=== PATIENT | female | born 1990 | race Caucasian/White ===

== ENCOUNTER → 2017-03-29 10:25 | Emergency (ER) | payer MEDICAID, OTHER ==
[2017-03-29 12:01] VITALS: BP 125/64
--- NOTE | 2017-03-29 22:32 | ED ---
Nubia Davison Erika, scribed for Beto Blanchard MD on 03/29/17 at 1412 . HPI Chest Pain - HPI Summary HPI Summary: Patient is a 26-year-old female presenting to the ED with a CC of sharp right anterior chest pain for the past 2.5 days. Patient reports that pain is localized under the right breast at the ribs, and slightly radiates to the right lateral chest and the right side of the back. Pain is aggravated by breathing, movement, and palpation. Pain is somewhat improved by placing pressure on the chest. Pain was somewhat improved by ibuprofen, but was not improved by Tramadol or Tylenol. Tramadol was given by a doctor she saw on 03/27. Pt denies trauma, but states the day before pain started, she had a spasm in her back which she massaged. Pt denies SOB. Pt reports she is about 15 weeks , and has not seen an OB yet. - History of Current Complaint Chief Complaint: EDChestWallPain Time Seen by Provider: 03/29/17 13:57 Hx Obtained From: Patient Onset/Duration: Started Days Ago, Atraumatic, Still Present Timing: Constant Current Severity: Moderate Pain Intensity: 10 Pain Scale Used: 0-10 Numeric Chest Pain Location: Right Anterior Chest Pain Radiates: Yes Chest Pain Radiates To:: Back - slightly Character: Sharp/Stabbing Aggravating Factor(s): Movement, Deep Breaths, Other: - palpation Alleviating Factor(s): Other: - ibuprofen slighlty helps Associated Signs and Symptoms: Negative: Shortness of Breath - Additional Pertinent History Primary Care Physician: [id number] - Allergy/Home Medications Allergies/Adverse Reactions: Allergies Allergy/AdvReac Type Severity Reaction Status Date / Time Latex Allergy Anaphylatic Verified 03/29/17 10:28 Shock PMH/Surg Hx/FS Hx/Imm Hx Cardiovascular History: Denies: Hx Myocardial Infarction Psychiatric History: Reports: Hx Anxiety, Hx Depression Denies: Hx Eating Disorder, Hx of Violent Episodes Against Others Infectious Disease History: No Infectious Disease History: Denies: Traveled Outside the [place] in Last 30 Days - Family History Known Family History: Positive: Other - depression - Social History Lives: With Family Alcohol Use: None Hx Substance Use: Yes Substance Use Type: Reports: Marijuana Hx Tobacco Use: Yes Smoking Status (MU): Light Every Day Tobacco Smoker Review of Systems Positive: Chest Pain Negative: Shortness Of Breath All Other Systems Reviewed And Are Negative: Yes Physical Exam Triage Information Reviewed: Yes Vital Signs On Initial Exam: Initial Vitals Temp Pulse Resp BP Pulse Ox 99.1 F 93 20 134/61 100 03/29/17 10:29 03/29/17 10:29 03/29/17 10:29 03/29/17 10:29 03/29/17 10:29 Vital Signs Reviewed: Yes Appearance: Positive: Well-Appearing, No Pain Distress, Obese Skin: Positive: Warm, Skin Color Reflects Adequate Perfusion, Dry Head/Face: Positive: Normal Head/Face Inspection Eyes: Positive: Normal ENT: Positive: Normal ENT inspection Neck: Positive: Supple, Nontender Respiratory/Lung Sounds: Positive: Clear to Auscultation, Breath Sounds Present Cardiovascular: Positive: RRR Abdomen Description: Positive: Nontender, Soft, Other: - Nontender RUQ Bowel Sounds: Positive: Present Musculoskeletal: Positive: Other - Very tender at the right anterior lower sternal border. Point tenderness at the costal margin. Nontender back Neurological: Positive: Normal Psychiatric: Positive: Affect/Mood Appropriate - Burns Coma Scale Coma Scale Total: 15 Diagnostics - Vital Signs Vital Signs Temp Pulse Resp BP Pulse Ox 03/29/17 12:00 98.4 F 99 16 125/64 99 03/29/17 10:29 99.1 F 93 20 134/61 100 - Laboratory Lab Statement: Any lab studies that have been ordered have been reviewed, and results considered in the medical decision making process. Chest Pain Course/Dx - Course Course Of Treatment: Clinically, this is clearly a musculoskeletal pain; she is tender to palpitation along the costochondral border inferiorly on the right. There is nothing that points towards PE of any other lung or gallbladder pathology. - Diagnoses Provider Diagnoses: Chest wall pain Discharge - Discharge Plan Condition: Stable Disposition: HOME Prescriptions: HYDROcodone/ACETAMIN 5-325 MG* [[place] 5-325 TAB*] 1 tab PO Q6H PRN #20 tab MDD 4 PRN Reason: Pain Patient Education Materials: Chest Wall Pain (ED) Referrals: Rudy Kemp MD [Primary Care Provider] - Additional Instructions: Please follow up with your PCP. The documentation as recorded by the Nubia knutson Erika accurately reflects the service I personally performed and the decisions made by , Beto Blanchard MD.
== END | disposition home or self-care (01) ==
LOC: ED 10:25
DX: R07.89 Other chest pain (principal); F17.210 Nicotine dependence, cigarettes, uncomplicated
CPT/HCPCS: 99282

== ENCOUNTER 2017-10-24 23:54 | Inpatient (IN) | payer OTHER ==
[2017-10-25] MEDS ORDERED: Witch Hazel PAD* JAR TOPICAL PRN (04:09)
[2017-10-25] MEDS ORDERED: Glycerin ADULT SUPP PR PRN (04:09)
[2017-10-25] MEDS ORDERED: Dibucaine 1% 28.35 GM TUBE PR PRN (04:09)
[2017-10-25] MEDS ORDERED: Acetaminophen TAB* 325 MG PO PRN (04:09)
[2017-10-25] MEDS ORDERED: Influenza VAC *QUAD* 2017-18* 0.5 ML SYRINGE IM ONE (04:16)
[2017-10-25] MEDS: Ibuprofen TAB* 600 MG PO PRN ×3 (05:49→18:48)
[2017-10-25] MEDS: Docusate CAP* 100 MG PO SCH ×3 (15:06→21:34)
[2017-10-25] MEDS: Simethicone TAB* 80 MG TAB.CHEW PO SCH ×2 (22:29→22:30)
[2017-10-26 08:38] VITALS: BP 128/81
[2017-10-26] MEDS ORDERED: Ferrous Gluconate TAB* 324 MG TAB PO SCH (09:00)
[2017-10-26] MEDS: Ibuprofen TAB* 600 MG PO PRN (09:20)
[2017-10-26 09:48] LABS: Hematocrit 36 % (35-47); Hemoglobin 12.3 g/dl (12.0-16.0); Mean Corpuscular HGB Conc 34 g/dl (31-36); Mean Corpuscular Hemoglobin 32 pg (27-31); Mean Corpuscular Volume 93 fL (80-97); Mean Platelet Volume 9 um3 (7.4-10.4); Red Blood Count 3.91 10^6/ul (4.0-5.4); Red Cell Distribution Width 13 % (10.5-15); White Blood Count 13.5 10^3/ul (3.5-10.8)
== END 2017-10-26 11:28 | disposition home or self-care (01) | DRG 560 ==
LOC: MCHOBOUT 23:54 → MCHOB 10-25 01:18
PROVIDERS: ADMIT Midwife; ATTEND Midwife
PROC: 10E0XZZ Delivery of Products of Conception, External Approach (ICD-10-PCS; principal; 2017-10-25)
DX: O48.0 Post-term pregnancy (principal); O36.5930 Maternal care for other known or suspected poor fetal growth, third trimester, not applicable or unspecified; F10.21 Alcohol dependence, in remission; O69.3XX0 Labor and delivery complicated by short cord, not applicable or unspecified; Z3A.41 41 weeks gestation of pregnancy; Z37.0 Single live birth
CPT/HCPCS: 36415; 85025; 88307; A9270-GY